=== PATIENT | male | born 1935 | race Caucasian/White ===

== ENCOUNTER 2018-03-22 14:44 | Emergency (ER) | payer MEDICARE, OTHER ==
--- OUTSIDE RECORDS SUMMARY | 2018-03-22 14:52 | XMS REPORT | Continuity of Care Document ---
:1935 External Reference #:[id number] Author Name Cee Steven O.D. Address [address] [place] [address] Care Team Providers Name Role Phone Bassam Gonzalez M.D. Primary Care Physician Unavailable Payers Type Date Identification Numbers Payment Provider Subscriber Policy Number: [id number] [employer] Bonifacio Maya PayID: [id number] [facility] [id number] [place] [address] Advance Directives Description No Information Available Problems Date Description Provider Status Onset: 10/29/2014 Benign prostatic hyperplasia Cee Steven O.D. Active Onset: 10/29/2014 Essential hypertension Cee Steven O.D. Active Onset: 10/29/2014 Abdominal aortic aneurysm Cee Steven O.D. Active Onset: 10/29/2014 Posttraumatic stress disorder Cee Steven O.D. Active Onset: 10/29/2014 Hypercholesterolemia Cee Steven O.D. Active Onset: 10/29/2014 Hypertensive retinopathy Cee Steven O.D. Active Onset: 10/29/2014 Nuclear senile cataract Cee Steven O.D. 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 Active degeneration Onset: 11/06/2014 Internal hordeolum Kassy Baxter O.D. Active Onset: 11/06/2014 Blepharitis Kassy Baxter O.D. Active Onset: 05/06/2015 Combined form of senile cataract Cee Steven O.D. 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 Active Onset: 12/06/2016 Chronic allergic conjunctivitis Mitchell Gunderson M.D. Active Onset: 11/06/2017 Tear film insufficiency Cee Steven O.D. Active Onset: Vertigo Active Onset: Sinusitis Active Onset: 03/09/2018 Vitreous degeneration Cee Steven O.D. 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 ETOH Use Denies alcohol use Tobacco Use Start: Unknown Patient has never smoked Recreational Drug Use Former Drug User Smoking Status Reviewed: 03/09/18 Patient has never smoked Allergies, Adverse Reactions, Alerts Date Description Reaction Status Severity Comments 10/29/2014 Felodipine Active 10/29/2014 Moxifloxacin Active 10/29/2014 Levaquin Active 10/29/2014 Contrast Dye Active 10/29/2014 Glucosamine Active 10/29/2014 Chondroitin Sulfate A Active 10/29/2014 Sulfa Antibiotics Active 10/29/2014 Clonidine Active 06/21/2017 Aliskiren Active 06/21/2017 Zoloft Active Medications Medication Date Status Form Strength Qnty SIG Indications Ordering Provider Preservision 05/05/ Active Capsules Arejose 2 1 cap by Cee Silveira 2 2017 mouth once ashley Steven O.D. Meclizine HCL / Active Tablets 25mg daily Unknown 0000 Beta Prostate / Active daily Unknown 0000 Biofreeze / Active Gel 4% daily Unknown Roll-On 0000 (back pain) Labetalol HCL / Active Tablets 100mg [place] 0000 tthew BeauDTera Fluocinolone / Active Oil 0.01% Unknown Acetonide 0000 Ventolin HFA / Active Aerosol 108(90Base inhale 2 Unknown 0000 ) mcg/Act puffs by mouth every 4 hours as Needed for shortness of breath Furosemide / Active Tablets 20mg take 1 Unknown 0000 tablet by mouth once daily if needed for Swelling Ranitidine HCL / Active Capsules 150mg take 1 Unknown 0000 capsule by mouth twice a day Amoxicillin/Cl / Active Tablets 875-125mg Unknown avulanate 0000 Potassium Epinastine HCL 12/28/ Hx Solution 0.05% 15ml 1 drop H10.45 Cee Gambino 2017 - twice a Stockwin, 05/07/ day in O.D. 2018 each eye Maxitrol 12/12/ Hx Ointment 3.5-87936- 3.500g apply 04/27' H10.45 Cee Gambino 2017 - 0.1 m to all Stockwin, 05/07/ lids every O.D. 2018 night at bedtime x 2 weeks Pazeo 12/06/ Hx Solution 0.7% 7.5ml 1 drop H10.45 Mitchell Gambino 2017 - both eyes Arleo, 12/27/ bid M.D. 2017 Artificial 12/05/ Hx Solution 1.4% 1 drop Mitchell J. Tears 2017 - both eyes Arleo, 12/05/ 1-2 times M.D. 2017 a day Artificial 12/05/ Hx Solution 1.4% 1 drop Mitchell J. Tears 2017 - both eyes Arleo, Preservative 1-2 times M.D. Free 2018 a day Doxazosin / Hx Tablets 1mg [place], Mesylate 0000 - Bassam 11/03/ M.D. 2016 Labetalol HCL / Hx Tablets 100mg [place], 0000 - Bassam 06/20/ M.D. 2018 Ventolin HFA / Hx Aerosol 108(90Base Skezas, 0000 - ) mcg/Act Bassam 05/07/ M.D. 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 Sertraline HCL 00/ Hx Tablets 25mg Unknown 0000 - 2017 Montelukast / Hx Tablets 10mg Unknown Sodium 0000 - 2017 Lisinopril / Hx Tablets 5mg Unknown 2017 Protonix / Hx Tablets DR 20mg Unknown 2017 Immunizations Description No Information Available Vital Signs Date Vital Result Comment 03/09/2018 9:54am BP Systolic 138 mmHg BP Diastolic 80 mmHg Heart Rate 49 /min Respiratory Rate 16 /min 06/21/2017 3:29pm BP Systolic 164 mmHg left arm BP Diastolic 104 mmHg left arm 11/04/2015 10:47am BP Systolic 142 mmHg Lwrist BP Diastolic 83 mmHg Lwrist Results Description No Information Available Procedures Date Code Description Status 11/06/2017 75029 Est Patient Comprehensive Exam Completed 06/21/2017 87470 Est Patient Comprehensive Exam Completed 05/08/2017 38074 Scanning Computerized Opthalmic Diagnostic Posterior Seg Completed Retina 05/08/2017 71644 Est Patient Comprehensive Exam Completed 12/06/2016 71746 Est Patient Intermediate Exam Completed 11/04/2016 83987 Scanning Computerized Opthalmic Diagnostic Posterior Seg Completed Retina 11/04/2016 19842 Determination Of Refractive State Completed 11/04/2016 04467 Est Patient Comprehensive Exam Completed 05/06/2016 22163 Scanning Computerized Opthalmic Diagnostic Posterior Seg Completed Retina 05/06/2016 24983 Est Patient Comprehensive Exam Completed 11/04/2015 22831 Est Patient Comprehensive Exam Completed 05/06/2015 06694 Est Patient Comprehensive Exam Completed 05/06/2015 15563 Determination Of Refractive State Completed 05/06/2015 67577 Scanning Computerized Opthalmic Diagnostic Posterior Seg Completed Retina 10/29/2014 07628 Determination Of Refractive State Completed 10/29/2014 33601 Est Patient Comprehensive Exam Completed 05/02/2014 29260 Est Patient Comprehensive Exam Completed 10/30/2013 91491 Determination Of Refractive State Completed 10/30/2013 98030 Est Patient Comprehensive Exam Completed 05/01/2013 29544 Determination Of Refractive State Completed 05/01/2013 39628 Est Patient Comprehensive Exam Completed 12/09/2011 67557 New Patient Comprehensive Exam Completed Encounters Type Date Location Provider Dx Diagnosis Office Visit 12/28/2016 Cee Marinelli H10.45 Other chronic 10:40a , pc Giovanna Steven allergic conjunctivitis H35.3132 Nexdtve age-related mclr degn, bilateral, intermed dry stage H35.033 Hypertensive retinopathy, bilateral Office Visit 12/12/2016 3:10p Mitchell Gambino H10.45 Other chronic MD Jalyn, erik Steven O.D. allergic conjunctivitis Office Visit 11/06/2014 1:45p Mitchell Baxter, 373.12 Meibomitis MD Jalyn, erik Heredia 373.00 Blepharitis Unspec 362.51 Nonexudative Senile Macular Degeneration / Dry Office Visit 10/29/2012 12:00p Mitchell Gambino 362.11 Hypertensive MD Jalyn, erik Steven O.D. Retinopathy Office Visit 04/20/2012 9:30a Mitchell Gambino 362.11 Hypertensive MD Jalyn, erik Steven O.D. Retinopathy Office Visit 01/20/2012 12:30p Mitchell Gambino 362.11 Hypertensive MD Jalyn, erik Steven O.D. Retinopathy Plan of Treatment 03/09/2018 - Cee Steven O.D.H35.033 Hypertensive retinopathy, bilateralFollow up:6 Month Follow Up OCT MAC You can expect to have your eyes dilated at your next visit. If Dr. Steven orders any additional testing, it may require extra time. We recommend that you bring sunglasses,as dilation drops often make you light sensitive until they wear off. We always recommend you bring someone to drive you home if you are uncomfortable driving with your eyes dilated. If you have any questions before your next visit, feel free to call our office at .H35.3132 Nonexudative age-related macular degeneration, bilateral, intermediate dry stageComments:Continue taking the Areds 2 vitaminsContinue to check Amsler grid 1-2 x weekly, each eye [id number] Combined forms of age-related cataract, bilateralComments:You have been diagnosed with cataracts. If you are happy with your vision as it is now, then we willsee you at your next scheduled appointment. If you feel like your vision is getting worse before your scheduled appointment, please call Patrizia Rogers at [phone].H43.21 Crystalline deposits in vitreous body, right eyeH04.123 Dry eye syndrome of bilateral lacrimal glandsComments: use artificial tears both eyes as sqbwfaQ99.813 Vitreous degeneration, bilateralComments:You have a Posterior Vitreous Detachment. Please read the pamphlet that was given to you. If you have any changes in your floaters or flashing lights, please contact this office.
--- OUTSIDE RECORDS SUMMARY | 2018-03-22 14:52 | XMS REPORT | Continuity of Care Document ---
:1935 External Reference #:[id number] Author Name Moise Aldrich Care Team Providers Name Role Phone Bassam Gonzalez M.D. Primary Care Physician Unavailable Payers Type Date Identification Numbers Payment Provider Subscriber Policy Number: [id number] [employer] Bonifacio Maya PayID: [id number] [id number] [place] [address] Advance Directives Description No Information Available Problems [...] Cee Steven O.D. Active Onset: Vertigo Active Family History Date Family Member(s) Problem(s) [...] Indications Ordering Provider Preservision 05/05/ Active Capsules Areds 2 1 cap by Cee Silveira 2 2017 mouth once [place], a day O.DTera Meclizine HCL / Active Tablets 25mg daily Unknown 0000 Beta Prostate / Active daily Unknown 0000 Biofreeze / Active Gel 4% daily Unknown Roll-On 0000 (back pain) Labetalol HCL / Active Tablets 100mg [place] 0000 tthew M.D. Fluocinolone / Active Oil 0.01% Unknown Acetonide [...] 0000 capsule by mouth twice a day Epinastine HCL 09/06/ Hx Solution 0.05% 15ml 1 drop H10.45 Cee Gambino 2017 - twice a [place]win, 05/07/ day in O.D. 2018 each eye Maxitrol 12/12/ Hx Ointment 3.5-20520- 3.500g apply 04/27' H10.45 Cee Gambino 2017 [...] Tears 2017 - both eyes Arleo, Preservative -2 times M.D. Free 2018 a day Doxazosin / Hx Tablets 1mg Skez[place], Mesylate 0000 - Bassam 11/03/ M.D. 2016 Labetalol HCL / Hx Tablets 100mg Skezas, 0000 - Bassam 06/20/ M.D. 2018 Ventolin HFA / Hx Aerosol 108(90Base Skezas, 0000 - ) mcg/Act Bassam 05/07/ M.D. 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 Sertraline HCL 00/ Hx Tablets 25mg Unknown - 2017 Montelukast /00/ Hx Tablets 10mg Unknown Sodium - 2017 Lisinopril 00/ Hx Tablets 5mg Unknown 2017 Protonix 00/ Hx Tablets DR 20mg Unknown 2017 Immunizations Description No Information Available Vital Signs Date Vital Result Comment 06/21/2017 3:29pm BP Systolic 164 mmHg left arm BP Diastolic 104 mmHg left arm 11/04/2015 10:47am BP Systolic 142 mmHg Lwrist BP Diastolic 83 mmHg Lwrist Results Description No Information Available Procedures Date Code Description Status 11/06/2017 52099 Est Patient Comprehensive Exam Completed 06/21/2017 33200 Est Patient Comprehensive Exam Completed 05/08/2017 58883 Scanning Computerized Opthalmic Diagnostic Posterior Seg Completed Retina 05/08/2017 67116 Est Patient Comprehensive Exam Completed 12/06/2016 26987 Est Patient Intermediate Exam Completed 11/04/2016 04428 Scanning Computerized Opthalmic Diagnostic Posterior Seg Completed Retina 11/04/2016 14689 Determination Of Refractive State Completed 11/04/2016 54459 Est Patient Comprehensive Exam Completed 05/06/2016 22960 Scanning Computerized Opthalmic Diagnostic Posterior Seg Completed Retina 05/06/2016 42757 Est Patient Comprehensive Exam Completed 11/04/2015 98318 Est Patient Comprehensive Exam Completed 05/06/2015 02588 Est Patient Comprehensive Exam Completed 05/06/2015 61861 Determination Of Refractive State Completed 05/06/2015 14410 Scanning Computerized Opthalmic Diagnostic Posterior Seg Completed Retina 10/29/2014 95277 Determination Of Refractive State Completed 10/29/2014 87789 Est Patient Comprehensive Exam Completed 05/02/2014 02280 Est Patient Comprehensive Exam Completed 10/30/2013 51229 Determination Of Refractive State Completed 10/30/2013 83448 Est Patient Comprehensive Exam Completed 05/01/2013 97753 Determination Of Refractive State Completed 05/01/2013 00778 Est Patient Comprehensive Exam Completed 12/09/2011 55958 New Patient Comprehensive Exam Completed Encounters Type Date Location Provider Dx Diagnosis Office Visit 12/28/2016 Cee Marinelli H10.45 Other chronic 10:40a , erik Steven O.D. allergic conjunctivitis H35.3132 Nexdtve age-related mclr degn, [...] erik Steven O.D. Retinopathy Plan of Treatment 11/06/2017 - Cee Steven O.D.H35.033 Hypertensive retinopathy, bilateralComments:Smoking can increase the risk of developing or worsening any eye related disease, as well as affect your overall health. If you are a smoker , we strongly recommend that you quit.If you are not a smoker, we strongly recommend that you do not start.Follow up:4 Month Follow Up / oct mac You can expect to have your eyes dilated at your next visit. If Dr. Steven orders any additional testing, it may require extra time. We recommend that you bring sunglasses, as dilation drops often make you light sensitive until they wear off. We always recommend you bring someone to drive you home if you are uncomfortable driving with your eyes dilated. If you have any questions before your next visit, feel free to call our office at .H31.6452 Nonexudative age-related macular degeneration, bilateral, intermediate dry stageComments:continue taking the areds 2 vitaminscheck your Amsler grid 2 x [id number] Combined forms of age-related cataract, bilateralComments:You have been diagnosed with cataracts. If you are happy with your vision as it is now, then we willsee you at your next scheduled appointment. If you feel like your vision is getting worse before your scheduled appointment, please call Patrizia or Sue at [phone].H43.21 Crystalline deposits in vitreous body, right eyeH04.123 Dry eye syndrome of bilateral lacrimal glandsComments: Use artificial tears 3-4 x day as needed both eyes
--- OUTSIDE RECORDS SUMMARY | 2018-03-22 14:52 | XMS REPORT | Continuity of Care Document ---
:1935 External Reference #:[id number] Author Name Opal Badillo Care Team Providers Name Role Phone Bassam Gonzalez MD Primary Care Physician Unavailable Payers Type Date Identification Numbers Payment Provider Subscriber Policy Number: [id number] [employer] Bonifacio Maya PayID: [id number] [address] [place] [address] Effective: 1998 Policy Number: [id number] Fred Eugeneett Bonifacio Maya Onset: 1998 PayID: [id number] [facility], [address]urg[address] [place] [address] Advance Directives Description No Information Available Problems Date Description Provider Status Onset: 07/31/2013 Essential hypertension Damian Padilla M.D., LEXX CAST[place] Active Onset: 07/31/2013 Difficulty breathing Damian Padilla M.D., LEXX [place] Active Onset: 07/31/2013 Heart murmur Damian Padilla M.D., LEXX [place] Active Onset: 08/28/2013 Chest pain Damian Padilla M.D., LEXX [place]ST[place] Active Onset: 07/07/2014 Thoracic Aortic Ectasia Damian Padilla M.D., LEXX CASTANEDA Active Onset: 07/13/2015 Thoracic aortic ectasia Ica ECHO Schedule Active Family History Date Family Member(s) Problem(s) Comments Father Diabetes Father bile duct cancer Mother Hypertension Mother Cancer Social History Type Date Description Comments Sex Unknown Marital Status Lives With Occupation Retired Tobacco Use Start: Unknown Never Smoked Cigarettes Smoking Status Reviewed: 03/14/18 Never Smoked Cigarettes ETOH Use Occasionally consumes alcohol Tobacco Use Start: Unknown Patient has never smoked Recreational Drug Use Denies Drug Use Exercise Type/Frequency Exercises regularly Allergies, Adverse Reactions, Alerts Date Description Reaction Status Severity Comments 07/30/2013 Benicar rash Active 07/30/2013 Diovan HCT Active 07/30/2013 Felodipine Active 07/30/2013 Flomax chest pain Active 07/30/2013 Glucosamine rash Active 07/30/2013 IV Dye (CT Dye) rash Active 07/30/2013 Levaquin Active 07/30/2013 Lipitor GI reaction Active 07/30/2013 Lipitor nausea Active 07/30/2013 Moxifloxacin swelling Active 07/31/2013 Amlodipine Active Severe itching, swelling lips, rash, diff breathing 07/31/2013 Aspirin Active sores on face 07/31/2013 Hydrochlorothiazide Active "hyperirritated, volume depleted" 07/31/2013 Clonidine Active itching, lip swelling, not feeling well 07/31/2013 Hydralazine Active Mild itching, not feeling well 07/31/2013 Metoprolol Active Severe itching, funning feeling on toungue, diff breathing, SOB 07/31/2013 Xyzal Active very tired 07/31/2013 Atenolol Active chest pain 07/31/2013 Nadolol Active Severe muscle spasms, diff breathing 08/25/2017 Terazosin Active 08/25/2017 Azelastine Active 08/25/2017 Doxyzosin Active 08/25/2017 Cefzil Active 08/25/2017 Tekturna Active 08/25/2017 Montelukast Active 08/25/2017 Zoloft Active 08/25/2017 Pazeo Active 08/25/2017 Methyldopa Active Medications Medication Date Status Form Strength Qnty SIG Indications Ordering Provider Preservision 00/ Active Capsules Areds 2 1 capsule Unknown Areds 2 0000 by mouth daily Beta Prostate 00/ Active 1 by Unknown 0000 mouth daily Meclizine HCL / Active Tablets 1 every Unknown 0000 6-8 hours as needed Labetalol HCL / Active Tablets 100mg 1 tablet Skezas, 0000 po tid MD Bassam Furosemide / Active Tablets 20mg take 1 Unknown 0000 tablet by mouth once daily Align Probiotic / Active 4mg take 1 Unknown 0000 tab by mouth daily Lorazepam 10/02/ Hx Tablets 2mg 2tabs take one M51.36 Cornelius 2017 - tablet 30 Ryder, 10/18/ minutes M.D. 2018 prior to mri, may repeat at time of mri. Robaxin-750 06/27/ Hx Tablets 750mg 50tabs 1-2 q8h Fox Yanez 2006 - [place], 07/31/ M.D. 2013 Ventolin HFA / Hx Aerosol 108(90Base 18unit 2 puffs Unknown 0000 - ) mcg/Act s by mouth four 2018 times a day as needed Metoprolol / Hx Tablets ER 25mg 30tabs 1 by Unknown Succinate ER 0000 - 24HR mouth 07/31/ every day 2013 Multivitamins / Hx Capsules 30caps 1 by Unknown 0000 - mouth 07/31/ every day 2013 Labetalol HCL / Hx Tablets 100mg 180tab 1 tab as Unknown 0000 - s directed 2017 Terazosin HCL 00/ Hx Capsules 5mg 90caps 1 by Unknown 0000 - mouth hs 2014 I-Bennie / Hx Tablets 1 by Unknown 0000 - mouth 04/24/ every day 2014 Buspirone HCL 00/ Hx Tablets 5mg 30tabs 1 by Unknown 0000 - mouth 04/24/ daily 2014 Vitamin D-3 / Hx Capsules 1000Unit 90caps 2 by Unknown 0000 - mouth 04/24/ every day 2014 Simvastatin 00/ Hx Tablets 5mg 90tabs 1 by Unknown 0000 - mouth 04/24/ every day 2014 Spironolactone / Hx Tablets 25mg 1/2 tab Unknown 0000 - by mouth 05/22/ bid 2016 Doxazosin 00/ Hx Tablets 1mg daily Lisa, Mesylate 0000 - MD Bassam 2017 Icaps // Hx Capsules 1 by Unknown 0000 - mouth daily 2018 Neomycin-Polymyx / Hx Solution 1% 2 drops Unknown in-HC 0000 - each ear 06/20/ prn 2018 Methyldopa / Hx Tablets 250mg 1 by Unknown 0000 - mouth /03/ every 6 2018 hours Medications Administered in Office Medication Date Status Form Strength Qnty SIG Indications Ordering Provider Inj, Administered Injection Ashley Regadenoson, 018 Thuman, PARCEL WRAPPER 0.1 MG Technetium TC Administered Injection Damian Harry 99M 018 Ever Padilla M.D., FACC, Per Unit Dose FASNC Up To 40 Millicuries Technetium TC Administered Injection Damian Harry 99M 018 Ever Padilla M.D., FACC, Per Unit Dose FASNC Up To 40 Millicuries Immunizations Description No Information Available Vital Signs Date Vital Result Comment 03/14/2018 1:22pm Height 71 inches 5'11" Heart Rate 78 /min BP Systolic Sitting 122 mmHg BP Diastolic Sitting 80 mmHg Body Temperature 96.7 F 03/05/2018 1:09pm Height 71 inches 5'11" Weight 209.00 lb Heart Rate 64 /min BP Systolic Sitting 158 mmHg Rue reg cuff BP Diastolic Sitting 100 mmHg Rue reg cuff BP Systolic Standing 146 mmHg Rue BP Diastolic Standing 92 mmHg Rue Respiratory Rate 16 /min BMI (Body Mass Index) 29.1 kg/m2 Ejection Fraction 60-65% 02/26/18 10/18/2017 2:37pm Height 71 inches 5'11" Weight 209.00 lb BP Systolic Sitting 128 mmHg BP Diastolic Sitting 90 mmHg Pain Level 4 BMI (Body Mass Index) 29.1 kg/m2 08/25/2017 10:16am Height 71 inches 5'11" Weight 209.00 lb without shoes Heart Rate 60 /min BP Systolic Sitting 144 mmHg Lue reg cuff BP Diastolic Sitting 94 mmHg Lue reg cuff BP Systolic Standing 150 mmHg Lue reg cuff BP Diastolic Standing 98 mmHg Lue reg cuff Respiratory Rate 17 /min BMI (Body Mass Index) 29.1 kg/m2 Ejection Fraction 65-70% 07/10/2017-echo 06/21/2017 9:43am Height 71 inches 5'11" Weight 202.00 lb BP Systolic Sitting 190 mmHg LA lg cuff BP Diastolic Sitting 122 mmHg LA lg cuff Respiratory Rate 18 /min Pain Level 0 BMI (Body Mass Index) 28.2 kg/m2 07/21/2015 12:38pm Height 71 inches 5'11" Weight 209.00 lb w/ shoes Heart Rate 56 /min reg BP Systolic Sitting 176 mmHg Lue, lg cuff BP Diastolic Sitting 76 mmHg Lue, lg cuff BP Systolic Standing 176 mmHg Lue BP Diastolic Standing 84 mmHg Lue Respiratory Rate 18 /min BMI (Body Mass Index) 29.1 kg/m2 Ejection Fraction 60-65% as of 07/13/15 echo 07/07/2014 9:08am Height 71 inches 5'11" Weight 208.00 lb w/o shoes Heart Rate 54 /min irreg BP Systolic Sitting 168 mmHg LA, reg cuff BP Diastolic Sitting 104 mmHg LA, reg cuff BP Systolic Standing 152 mmHg LA BP Diastolic Standing 80 mmHg LA Respiratory Rate 18 /min BMI (Body Mass Index) 29.0 kg/m2 05/07/2014 8:11am Height 71 inches 5'11" Weight 206.00 lb Heart Rate 60 /min BP Systolic Sitting 136 mmHg LA reg cuff BP Diastolic Sitting 78 mmHg LA reg cuff BP Systolic Standing 148 mmHg LA BP Diastolic Standing 88 mmHg LA Respiratory Rate 16 /min BMI (Body Mass Index) 28.7 kg/m2 08/28/2013 10:40am Height 71 inches 5'11" Weight 211.00 lb Heart Rate 60 /min BP Systolic Sitting 144 mmHg BP Diastolic Sitting 82 mmHg BP Systolic Standing 150 mmHg BP Diastolic Standing 84 mmHg BP Systolic Recheck 141 mmHg home unit BP Diastolic Recheck 80 mmHg home unit Respiratory Rate 16 /min BMI (Body Mass Index) 29.4 kg/m2 07/31/2013 12:15pm Height 71 inches 5'11" Weight 213.00 lb Heart Rate 76 /min BP Systolic 178 mmHg right arm BP Diastolic 100 mmHg right arm BP Systolic Sitting 180 mmHg left arm BP Diastolic Sitting 92 mmHg left arm BP Systolic Standing 182 mmHg left arm BP Diastolic Standing 90 mmHg left arm Respiratory Rate 16 /min BMI (Body Mass Index) 29.7 kg/m2 Results Test Date Facility Test Result H/L Range Note Laboratory test 08/02/2013 [facility] Free T4 0.69 ng/mL N 0.61-1.[address] [place] [address] [phone] T4 5.95 g/dL Low 6.09-12.23 TSH (Thyroid Stimulating Horm) 1.06 IU/mL N 0.34-5.60 T3 Uptake 27 % N 27 - 37 1 Lipid Profile 08/02/2013 [facility] Triglycerides 76 mg/dL N 2 (Trig/Chol/HDL) [address] [place] [address] [phone] Cholesterol 170 mg/dL N 3 HDL Cholesterol 44.1 mg/dL N 4 LDL Cholesterol 111 mg/dL N 5 Comp Metabolic Panel 08/02/2013 [facility] Sodium 139 mmol/L N 133-[address] [place] [address] [phone] Potassium 4.1 mmol/L N 3.7-5.6 Chloride 105 mmol/L N 101-111 Co2 Carbon Dioxide 29 mmol/L N 22-32 Anion Gap 5 mmol/L N 2-11 Glucose 100 mg/dL N 70-100 Blood Urea Nitrogen 17 mg/dL N 6-24 Creatinine 0.72 mg/dL N 0.67-1.17 BUN/Creatinine Ratio 23.6 High 8-20 Calcium 9.0 mg/dL N 8.6-10.3 Total Protein 6.6 g/dL N 6.4-8.9 Albumin 4.2 g/dL N 3.2-5.2 Globulin 2.4 g/dL N 2-4 Albumin/Globulin Ratio 1.8 N 1-3 Total Bilirubin 0.90 mg/dL N 0.2-1.0 Alkaline Phosphatase 68 U/L N 34-104 Alt 23 U/L N 7-52 Ast 21 U/L N 13-39 Egfr Non- 106.1 N >60 Egfr 136.5 N >60 6 CBC Auto Diff 08/02/2013 [facility] White Blood 7.6 10^3/uL N 4.8-10.[address] [place] [address] [phone] Red Blood Count 4.82 10^6/uL N 4.0-5.4 Hemoglobin 14.5 g/dL N 14.0-18.0 Hematocrit 43 % N 42-52 Mean Corpuscular Volume 89 fL N 80-94 Mean Corpuscular Hemoglobin 30 pg N 27-31 Mean Corpuscular HGB Conc 34 g/dL N 31-36 Red Cell Distribution Width 14 % N 10.5-15 Platelet Count 163 10^3/uL N 150-450 Mean Platelet Volume 9 um3 N 7.4-10.4 Abs Neutrophils 4.5 10^3/uL N 1.5-7.7 Abs Lymphocytes 1.8 10^3/uL N 1.0-4.8 Abs Monocytes 0.9 10^3/uL High 0-0.8 Abs Eosinophils 0.3 10^3/uL N 0-0.6 Abs Basophils 0 10^3/uL N 0-0.2 Abs Nucleated RBC 0.01 10^3/uL N Granulocyte % 59.7 % N 38-83 Lymphocyte % 24.2 % Low 25-47 Monocyte % 12.1 % High 1-9 Eosinophil % 3.5 % N 0-6 Basophil % 0.5 % N 0-2 Nucleated Red Blood Cells % 0.1 N 1 Test Performed by: [address] [address] [employer] Educational [employer]ide: Will Mckeon III, M.D. 2 Desirable <150 Borderline high 150-199 High 200-499 Very High >500 3 Desirable <200 Borderline high 200-239 High >239 4 Low <40 Desirable: 40-60 High: >60 5 Desirable <100 Near Optimal 100-129 Borderline high 130-159 High 160-189 Very High >189 6 Because ethnic data is not always readily available, this report includes an eGFR for both -Americans and non- Americans. The National Kidney Disease Education Program (NKDEP) does not endorse the use of the MDRD equation for patients that are not between the ages of 18 and 70, are , have extremes of body size, muscle mass, or nutritional status, or are non- or non-. According to the National Kidney Foundation, irrespective of diagnosis, the stage of the disease is based on the level of kidney function: Stage Description GFR(mL/min/1.73 m(2)) 1 Kidney damage with normal or decreased GFR 90 2 Kidney damage with mild decrease in GFR 60-89 3 Moderate decrease in GFR 30-59 4 Severe decrease in GFR 15-29 5 Kidney failure <15 (or dialysis) Procedures Date Code Description Status 03/05/2018 78441 EKG Tracing & Interpretation Completed 02/26/2018 53601 ECHO Transthoracic, Real-Time 2D With Doppler And Color Completed Flow 02/26/2018 72866 ECHO Transthoracic, Real-Time 2D With Doppler And Color Completed Flow 2018 91234 Stress Test Completed 2018 53889 Myocardial Perfusion Imaging Tomographic (Spect) Multiple Completed Studies 02/02/2018 35734 Destruction Of Benign Lesions Any Method 1-14 lesions Completed 02/02/2018 23560 Dest Lesion Each Addl Lesion 2 Through 14 Each Completed 02/02/2018 65586 Destruction ALL Benign Or Premalignant Lesion (Other Than Completed [place] 02/02/2018 92549 Biopsy Skin Lesion Single Completed 08/25/2017 30167 EKG Tracing & Interpretation Completed 07/10/2017 86542 ECHO Transthoracic, Real-Time 2D With Doppler And Color Completed Flow 07/10/2017 15020 ECHO Transthoracic, Real-Time 2D With Doppler And Color Completed Flow 06/21/2017 42249 Aspiration &/Or Inj Of Ganglion Cyst(S) Any Location Completed 07/21/2015 11015 EKG Tracing & Interpretation Completed 07/13/2015 70468 ECHO Transthoracic, Real-Time 2D With Doppler And Color Completed Flow 07/07/2014 04516 EKG Tracing & Interpretation Completed 07/04/2014 05550 ECHO Transthoracic, Real-Time 2D With Doppler And Color Completed Flow 08/26/2013 89564 ECHO Stress Test Incl Perf Contiuous ekg Monitoring W/Phys Completed Superv 08/09/2013 59207 ECHO Transthoracic, Real-Time 2D With Doppler And Color Completed Flow 07/31/2013 69194 EKG Tracing & Interpretation Completed Encounters Type Date Location Provider Dx Diagnosis Office Visit 03/05/2018 [facility] Damian Mcdonald I77.810 Thoracic aortic 1:30p [facility] Pola Padilla, ectasia [facility] Office Visit 02/02/2018 [facility] Dermatology Jazmín Armendariz, L82.1 Other seborrheic 9:00a keratosis D18.01 Hemangioma of skin and subcutaneous tissue L82.0 Inflamed seborrheic keratosis L98.9 Disorder of the skin and subcutaneous tissue, unspecified L57.0 Actinic keratosis Office Visit 10/18/2017 2:30p Sp[facility] Nav[facility] Aline Quevedo 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] M67.442 Ganglion, left hand Office Visit 07/21/2015 1:00p [facility] Damian Harry I77.810 Thoracic aortic [facility] Pola Padilla, ectasia FAC, FASNC Office Visit 07/07/2014 9:15a [facility] Damian Mcdonald 447.71 Thoracic Aortic [facility] Pola Padilla, Ectasia FACTim, FASNC 401.9 Hypertension Unspec Office Visit 05/07/2014 8:15a [facility] Damian Mcdonald 401.9 Hypertension [facility] Pola Padilla, Unspec FACC, FASNC Office Visit 08/28/2013 10:30a [facility] Damian Mcdonald 786.50 Pain Chest Unspec Pola Padilla, FACC, FASNC Office Visit 07/31/2013 12:00p [facility] Damian Harry 401.9 Hypertension Pola Padilla, Unspec FAC, FASNC 786.09 Dyspnea & Respiratory Abnormalities Other 785.2 Murmur Cardiac Undiagnosed Office Visit 06/27/2006 1:00p [facility] Fox Wagner, 724.2 Lumbago [facility] 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 Charles to discuss surgery
--- OUTSIDE RECORDS SUMMARY | 2018-03-22 14:52 | XMS REPORT ---
:1935 External Reference #:[id number] Author Organization [facility] Address [address] [place] [address] [place] [address] Phone [phone] Care Team Providers Name Role Phone Bassam Gonzalez MD Primary Care Physician Unavailable Payers Type Date Identification Numbers Payment Provider Subscriber Commercial Policy Number: [id number] [employer]et[employer] Medicare Bonifacio Maya PayID: [id number] [facility] [address] [place] [address] Workers Compensation Effective: Policy Number: Fred Maya 1998 [id number] Onset: 1998 PayID: [id number] [facility], [address]urg[address] [place] [address] Problems Date Description Provider Status Onset: 07/31/2013 Essential hypertension Damian Padilla M.D., ALDOLEXX Active Onset: 07/31/2013 Difficulty breathing [facility] Active Onset: 07/31/2013 Heart murmur [facility] Active Onset: 08/28/2013 Chest pain Damian Padilla M.D., LEXX CASTANEDA Active Onset: 07/07/2014 Thoracic Aortic Ectasia [facility] M.D., [facility] Active Onset: 07/13/2015 Thoracic aortic ectasia Ica ECHO Schedule Active Family History Date Family Member(s) Problem(s) Comments Father Diabetes Father bile duct cancer Mother Hypertension Mother Cancer Social History Type Date Description Comments Marital Status Lives With Occupation Retired Cigarette Use Never Smoked Cigarettes ETOH Use Occasionally consumes alcohol Smoking Patient has never smoked Recreational Drug Use Denies Drug Use Daily Caffeine Consumes on average 3 cups of regular coffee per day Daily Caffeine consumes chocolate occasionally Exercise Type/Frequency Exercises regularly Allergies, Adverse Reactions, Alerts Date Description Reaction Status Severity Comments 07/30/2013 Benicar rash active 07/30/2013 Diovan HCT active 07/30/2013 Felodipine active 07/30/2013 Flomax chest pain active 07/30/2013 Glucosamine rash active 07/30/2013 IV Dye (CT Dye) rash active 07/30/2013 Levaquin active 07/30/2013 Lipitor GI reaction active 07/30/2013 Lipitor nausea active 07/30/2013 Moxifloxacin swelling active 07/31/2013 Amlodipine active Moderate to itching, swelling Severe lips, rash, diff breathing 07/31/2013 Aspirin active sores on face 07/31/2013 Hydrochlorothiazide active "hyperirritated, volume depleted" 07/31/2013 Clonidine active itching, lip swelling, not feeling well 07/31/2013 Hydralazine active Mild itching, not feeling well 07/31/2013 Metoprolol active Moderate to itching, funning Severe feeling on toungue, diff breathing, SOB 07/31/2013 Xyzal active very tired 07/31/2013 Atenolol active chest pain 07/31/2013 Nadolol active Moderate to muscle spasms, Severe diff breathing 08/25/2017 Terazosin active 08/25/2017 Azelastine active 08/25/2017 Doxyzosin active 08/25/2017 Cefzil active 08/25/2017 Tekturna active 08/25/2017 Montelukast active 08/25/2017 Zoloft active 08/25/2017 Pazeo active 08/25/2017 Methyldopa active Medications Medication Date Status Form Strength Qnty SIG Indications Ordering Provider Preservision / Active Capsules Areds 2 1 capsule Unknown Areds 2 0000 by mouth daily Beta Prostate / Active 1 by Unknown 0000 mouth daily [...] one M51.36 Cornelius 2017 - tablet 30 Pierz, 10/18/ minutes M.D. 2017 prior to mri, may repeat at time of mri. Robaxin-750 06/27/ Hx Tablets 750mg 50tabs 1-2 q8h Fox Yanez 2006 - Zupruk, 07/31/ M.DTera 2013 Ventolin HFA / Hx Aerosol 108(90Base 18unit 2 puffs Unknown 0000 - ) mcg/Act s by mouth 06/20/ four 2018 times a day as needed Metoprolol / Hx Tablets ER 25mg 30tabs 1 by Unknown Succinate ER 0000 - 24HR mouth 07/31/ every day 2013 Multivitamins / Hx Capsules 30caps 1 by Unknown 0000 - mouth 07/31/ day 2013 Labetalol HCL / Hx Tablets 100mg 180tab 1 tab as Unknown 0000 - s directed 2017 Terazosin HCL 00/ Hx Capsules 5mg 90caps 1 by Unknown 0000 - mouth hs 2014 I-Bennie 00/ Hx Tablets 1 by Unknown 0000 - mouth 04/24/ every day 2014 Buspirone HCL 00/ Hx Tablets 5mg 30tabs 1 by Unknown 0000 - mouth 04/24/ daily 2015 Vitamin D-3 / Hx Capsules 1000Unit 90caps 2 by Unknown 0000 - mouth 04/24/ every day 2014 Simvastatin 00/ Hx Tablets 5mg 90tabs 1 by Unknown 0000 - mouth 04/24/ every day 2014 Spironolactone / Hx Tablets 25mg 1/2 tab Unknown 0000 - by mouth 05/22/ bid 2016 Doxazosin 00/ Hx Tablets 1mg daily Lisa Mesnasir 0000 - MD Bassam 2017 Icaps / Hx Capsules 1 by Unknown 0000 - mouth daily 2018 Neomycin-Polymyx / Hx Solution 1% 2 drops Unknown in-HC 0000 - each ear 06/20/ prn 2018 Methyldopa / Hx Tablets 250mg 1 by Unknown 0000 - mouth 08/24/ every 6 2018 hours Medications Administered in Office Medication Date Status Form Strength Qnty SIG Indications Ordering Provider Inj, Administered Injection Ashley Regadenoson, 018 Thuman, EMPLOYEE ADVISER 0.1 MG Technetium TC Administered Injection Damian Mcdonald 99M 018 Ever Padilla M.D., LEONEL, Per Unit Dose FASNC Up To 40 Millicuries Technetium TC Administered Injection Damian Harry 99M 018 Ever Padilla M.D., FACC, Per Unit Dose FASNC Up To 40 Millicuries Vital Signs Date Vital Result Comment 03/05/2018 Height 71 inches 5'11" Weight 209.00 lb Heart Rate 64 /min BP Systolic Sitting 158 mmHg Rue reg cuff BP Diastolic Sitting 100 mmHg Rue reg cuff BP Systolic Standing 146 mmHg Rue BP Diastolic Standing 92 mmHg Rue Respiratory Rate 16 /min BMI (Body Mass Index) 29.1 kg/m2 Ejection Fraction 60-65% 02/26/18 10/18/2017 Height 71 inches 5'11" Weight 209.00 lb BP Systolic Sitting 128 mmHg BP Diastolic Sitting 90 mmHg Pain Level 4 BMI (Body Mass Index) 29.1 kg/m2 08/25/2017 Height 71 inches 5'11" Weight 209.00 lb without shoes Heart Rate 60 /min BP Systolic Sitting 144 mmHg Lue reg cuff BP Diastolic Sitting 94 mmHg Lue reg cuff BP Systolic Standing 150 mmHg Lue reg cuff BP Diastolic Standing 98 mmHg Lue reg cuff Respiratory Rate 17 /min BMI (Body Mass Index) 29.1 kg/m2 Ejection Fraction 65-70% 07/10/2017-echo 06/21/2017 Height 71 inches 5'11" Weight 202.00 lb BP Systolic Sitting 190 mmHg LA lg cuff BP Diastolic Sitting 122 mmHg LA lg cuff Respiratory Rate 18 /min Pain Level 0 BMI (Body Mass Index) 28.2 kg/m2 07/21/2015 Height 71 inches 5'11" Weight 209.00 lb w/ shoes Heart Rate 56 /min reg BP Systolic Sitting 176 mmHg Lue, lg cuff BP Diastolic Sitting 76 mmHg Lue, lg cuff BP Systolic Standing 176 mmHg Lue BP Diastolic Standing 84 mmHg Lue Respiratory Rate 18 /min BMI (Body Mass Index) 29.1 kg/m2 Ejection Fraction 60-65% as of 07/13/15 echo 07/07/2014 Height 71 inches 5'11" Weight 208.00 lb w/o shoes Heart Rate 54 /min irreg BP Systolic Sitting 168 mmHg LA, reg cuff BP Diastolic Sitting 104 mmHg LA, reg cuff BP Systolic Standing 152 mmHg LA BP Diastolic Standing 80 mmHg LA Respiratory Rate 18 /min BMI (Body Mass Index) 29.0 kg/m2 05/07/2014 Height 71 inches 5'11" Weight 206.00 lb Heart Rate 60 /min BP Systolic Sitting 136 mmHg LA reg cuff BP Diastolic Sitting 78 mmHg LA reg cuff BP Systolic Standing 148 mmHg LA BP Diastolic Standing 88 mmHg LA Respiratory Rate 16 /min BMI (Body Mass Index) 28.7 kg/m2 08/28/2013 Height 71 inches 5'11" Weight 211.00 lb Heart Rate 60 /min BP Systolic Sitting 144 mmHg BP Diastolic Sitting 82 mmHg BP Systolic Standing 150 mmHg BP Diastolic Standing 84 mmHg BP Systolic Recheck 141 mmHg home unit BP Diastolic Recheck 80 mmHg home unit Respiratory Rate 16 /min BMI (Body Mass Index) 29.4 kg/m2 07/31/2013 Height 71 inches 5'11" Weight 213.00 lb [...] Mass Index) 29.7 kg/m2 Results Test Date Test Result H/L Range Note Laboratory test finding 08/02/2013 Free T4 0.69 ng/mL 0.61-1.12 T4 5.95 g/dL Low 6.09-12.23 TSH (Thyroid Stimulating Horm) 1.06 IU/mL 0.34-5.60 T3 Uptake 27 % 27 - 37 1 Lipid Profile (Trig/Chol/HDL) 08/02/2013 Triglycerides 76 mg/dL 2 Cholesterol 170 mg/dL 3 HDL Cholesterol 44.1 mg/dL 4 LDL Cholesterol 111 mg/dL 5 Comp Metabolic Panel 08/02/2013 Sodium 139 mmol/L 133-145 Potassium 4.1 mmol/L 3.7-5.6 Chloride 105 mmol/L 101-111 Co2 Carbon Dioxide 29 mmol/L 22-32 Anion Gap 5 mmol/L 2-11 Glucose 100 mg/dL 70-100 Blood Urea Nitrogen 17 mg/dL 6-24 Creatinine 0.72 mg/dL 0.67-1.17 BUN/Creatinine Ratio 23.6 High 8-20 Calcium 9.0 mg/dL 8.6-10.3 Total Protein 6.6 g/dL 6.4-8.9 Albumin 4.2 g/dL 3.2-5.2 Globulin 2.4 g/dL 2-4 Albumin/Globulin Ratio 1.8 1-3 Total Bilirubin 0.90 mg/dL 0.2-1.0 Alkaline Phosphatase 68 U/L 34-104 Alt 23 U/L 7-52 Ast 21 U/L 13-39 Egfr Non- 106.1 >60 Egfr 136.5 >60 6 CBC Auto Diff 08/02/2013 White Blood Count 7.6 10^3/uL 4.8-10.8 Red Blood Count 4.82 10^6/uL 4.0-5.4 Hemoglobin 14.5 g/dL 14.0-18.0 Hematocrit 43 % 42-52 Mean Corpuscular Volume 89 fL 80-94 Mean Corpuscular Hemoglobin 30 pg 27-31 Mean Corpuscular HGB Conc 34 g/dL 31-36 Red Cell Distribution Width 14 % 10.5-15 Platelet Count 163 10^3/uL 150-450 Mean Platelet Volume 9 um3 7.4-10.4 Abs Neutrophils 4.5 10^3/uL 1.5-7.7 Abs Lymphocytes 1.8 10^3/uL 1.0-4.8 Abs Monocytes 0.9 10^3/uL High 0-0.8 Abs Eosinophils 0.3 10^3/uL 0-0.6 Abs Basophils 0 10^3/uL 0-0.2 Abs Nucleated RBC 0.01 10^3/uL Granulocyte % 59.7 % 38-83 Lymphocyte % 24.2 % Low 25-47 Monocyte % 12.1 % High 1-9 Eosinophil % 3.5 % 0-6 Basophil % 0.5 % 0-2 Nucleated Red Blood Cells % 0.1 1 Test Performed by: [facility] [address] [address] Resident Care Spec: Will Mckeon III, M.D. 2 Desirable <150 [...] Kidney failure <15 (or dialysis) Procedures Date CPT Code Description Status 03/05/2018 28538 EKG Tracing & Interpretation Completed 02/26/2018 51263 ECHO Transthoracic, Real-Time 2D With Doppler And Color Completed Flow 2018 25033 Stress Test Completed 2018 75993 Myocardial Perfusion Imaging Tomographic (Spect) Completed Multiple Studies 02/02/2018 74112 Destruction Of Benign Lesions Any Method 1-14 lesions Completed 02/02/2018 03106 Dest Lesion Each Addl Lesion 2 Through 14 Each Completed 02/02/2018 13300 Destruction ALL Benign Or Premalignant Lesion (Other Completed Than [place] 02/02/2018 86862 Biopsy Skin Lesion Single Completed 08/25/2017 06106 EKG Tracing & Interpretation Completed 07/10/2017 89212 ECHO Transthoracic, Real-Time 2D With Doppler And Color Completed Flow 07/10/2017 76936 ECHO Transthoracic, Real-Time 2D With Doppler And Color Completed Flow 06/21/2017 38194 Aspiration &/Or Inj Of Ganglion Cyst(S) Any Location Completed 07/21/2015 89039 EKG Tracing & Interpretation Completed 07/13/2015 00387 ECHO Transthoracic, Real-Time 2D With Doppler And Color Completed Flow 07/07/2014 59112 EKG Tracing & Interpretation Completed 07/04/2014 60179 ECHO Transthoracic, Real-Time 2D With Doppler And Color Completed Flow 08/26/2013 67793 ECHO Stress Test Incl Perf Contiuous ekg Monitoring Completed W/Phys Superv 08/09/2013 49910 ECHO Transthoracic, Real-Time 2D With Doppler And Color Completed Flow 07/31/2013 28671 EKG Tracing & Interpretation Completed Encounters Type Date Location Provider CPT E/M Dx Office Visit 02/02/2018 9:00a [facility] [place]azmín [place] [address] L82.1 D18.01 L82.0 L98.9 L57.0 Office Visit 10/18/2017 2:30p [facility] Aline Quevedo PA-C 21124 M51.36 M54.2 Office Visit 10/02/2017 2:30p [facility] Aline Quevedo PA-C 68457 M51.36 Office Visit 08/25/2017 10:45a [facility] Damian Padilla, 13114 I77.810 Avinash Escalona, LEONEL, [facility] Office Visit 06/21/2017 9:00a [facility] [place] [address] M72.0 C.M.A. M67.442 Office Visit 07/21/2015 1:00p [facility] Damian Padilla, 42663 I77.810 Avinash Escalona, ALDO, [facility] Office Visit 07/07/2014 9:15a [facility] Damian Padilla, 39548 447.71 Avinash Escalona, LEONEL, [facility] 401.9 Office Visit 05/07/2014 8:15a [facility] Damian Padilla, 71881 401.9 Avinash [facility]alona, LEONEL, [facility] Visit 08/28/2013 10:30a [facility] Damian Padilla, 61232 786.50 M.Ilia, FACTim, [facility] Office Visit 07/31/2013 12:00p [facility] Damian Padilla, [address]07[address] 401.9 M.Ilia, LEONEL, [facility] 786.09 785.2 Office Visit 06/27/2006 1:00p [facility], 85863 724.2 Avinash Escalona 607.84 Plan of Care 03/05/2018 - Damian Padilla M.D., LEONEL, LQDRKP85.810 Thoracic aortic ectasiaNew Orders:EchocardiogramComments:As discussed, your heart seems stable including no significant heart artery blockages and stable aorta. Please continue to avoid lifting weights greater than 30 lbs.Follow up:3 years after echo
--- OUTSIDE RECORDS SUMMARY | 2018-03-22 14:52 | XMS REPORT | Continuity of Care Document ---
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 Bassam Gonzalez MD Primary Care Physician Unavailable Payers Type Date Identification Numbers Payment Provider Subscriber Expires: 2016 Policy Number: [id number] Medicare Bonifacio Maya PayID: [id number] [address] [place] [address] Policy Number: [id number] [employer] Bonifacio Maya [address] [address] [place] [address] Advance Directives Description No Information Available Problems Description No Information Family History Date Family Member(s) Problem(s) Comments General Cancer, Head And Neck Social History Type Date Description Comments Sex Unknown Marital Status Smoke-Free Home is smoke-free Occupation Retired Tobacco Use Start: Unknown End: Used To Smoke Cigarettes But Unknown Quit. ETOH Use Rarely consumes alcohol Recreational Drug Use Denies Drug Use Allergies, Adverse Reactions, Alerts Date Description Reaction Status Severity Comments 06/16/2016 Benicar swelling and itchy skin Active 06/16/2016 Terazosin labored breathing Active 06/16/2016 Buspar Active 06/16/2016 Nadolol increased bp and muscle spasm Active 06/16/2016 Atenolol chest pain Active 06/16/2016 Xyzal increased fatigue Active 06/16/2016 Metoprolol Active 06/16/2016 Hydrochlorothiazide Active 06/16/2016 Clonidine Active 06/16/2016 Hydralazine Active 06/16/2016 Felodipine Active Medications Medication Date Status Form Strength Qnty SIG Indications Ordering Provider Montelukast 10/20/ Active Tablets 10mg 30tabs 1 by mouth Sharon Mcdonald every day Pola Vann Meclizine HCL 09/12/ Active Tablets 25mg 30tabs 1 by mouth Harry2016 three Edwar, times a M.D. day Xanax 06/23/ Active Tablets 0.5mg 3tabs one tab 30 Harry2016 minutes Edwar, before the M.D. procedure, Doxazosin / Active Tablets 1mg 1 PO QHS Unknown 0000 Areds2 / Active Tabs 1 by mouth Unknown 0000 daily Labetalol HCL / Active Tablets 100mg 1 tab by Unknown 0000 mouth four times daily Beta Prostate / Active 1 po qd Unknown 0000 Prednisone 01/20/ Hx Tablets 10mg 10tabs 2 by mouth Harry2015 - for the Edwar, 06/15/ first 3 M.D. 2017 days and 1 by mouth every morning for the next 4 days Dermotic 09/01/ Hx Oil 0.01% 2units apply 5 Harry, 2011 - gtts bid Edwar, 09/08/ to M.D. 2015 affected ear canal(s)fo r 7-14 days Nasonex 07/12/ Hx Suspension 50mcg/Act 17GMbo 2 sprays Harry, 2010 - ttl each Edwar, 09/08/ nostril M.D. 2016 daily Dermotic 12/14/ Hx Oil 0.01% 1units 5 gtts in Harry2009 - both ears Edwar, 07/12/ bid x 1-2 M.D. 2010 wks, then as needed Benicar / Hx Tablets 10mg Unknown 0000 - 2015 Aspirin / Hx Chewtabs 81mg Unknown 0000 - 2015 Mvi / Hx Unknown 0000 - 2015 Doxycycline / Hx Capsules 100mg 20caps take one Unknown Hyclate 0000 - twice a day 2015 Neomycin/Poly / Hx Suspension 3.5-72919- Unknown myxin/Dexamet 0000 - 0.1 hasone 2016 Ventolin HFA / Hx Aerosol 108(90Base 2 puffs by Unknown 0000 - ) mcg/Act mouth 06/15/ every 4 2017 hours as needed Immunizations Description No Information Available Vital Signs Date Vital Result Comment 03/02/2018 1:23pm Weight 212.00 lb Height 70.5 inches 5'10.50" BMI (Body Mass Index) 30.0 kg/m2 BP Systolic 189 mmHg pt states he will take his bp med now BP Diastolic 113 mmHg pt states he will take his bp med now Heart Rate 52 /min O2 % BldC Oximetry 97 % Body Temperature 97.7 F Pain Level 0 10/20/2016 3:28pm Weight 208.00 lb Height 70.5 inches 5'10.50" BMI (Body Mass Index) 29.4 kg/m2 Heart Rate 86 /min O2 % BldC Oximetry 93 % Body Temperature 97.5 F 09/12/2016 4:42pm Weight 208.00 lb Height 70.5 inches 5'10.50" BMI (Body Mass Index) 29.4 kg/m2 BP Systolic 146 mmHg BP Diastolic 86 mmHg Heart Rate 82 /min O2 % BldC Oximetry 99 % Body Temperature 98.6 F 06/16/2016 1:37pm Weight 208.00 lb Height 70.5 inches 5'10.50" BMI (Body Mass Index) 29.4 kg/m2 BP Systolic 144 mmHg BP Diastolic 86 mmHg Heart Rate 59 /min O2 % BldC Oximetry 95 % Body Temperature 97.7 F 01/21/2016 9:54am Weight 197.00 lb Height 70.5 inches 5'10.50" BMI (Body Mass Index) 27.9 kg/m2 BP Systolic 152 mmHg BP Diastolic 92 mmHg Heart Rate 51 /min O2 % BldC Oximetry 97 % Body Temperature 98.2 F 09/09/2015 2:51pm Weight 208.00 lb Height 70.5 inches 5'10.50" BMI (Body Mass Index) 29.4 kg/m2 BP Systolic 144 mmHg BP Diastolic 86 mmHg Heart Rate 55 /min O2 % BldC Oximetry 97 % Body Temperature 97.8 F 07/12/2010 10:38am Weight 205.00 lb Height 71 inches 5'11" BMI (Body Mass Index) 28.6 kg/m2 BP Systolic 136 mmHg BP Diastolic 88 mmHg Heart Rate 68 /min O2 % BldC Oximetry 98 % Body Temperature 96.9 F 12/14/2009 2:13pm Weight 205.00 lb Height 71 inches 5'11" BMI (Body Mass Index) 28.6 kg/m2 BP Systolic 130 mmHg BP Diastolic 80 mmHg Heart Rate 55 /min O2 % BldC Oximetry 97 % Body Temperature 98.1 F Results Description No Information Available Procedures Date Code Description Status 10/20/2016 35720 Tympanometry Completed 06/16/2016 17781 Derrick Maneuver Completed 06/16/2016 68335 Tympanometry Completed 01/21/2016 16930 Tympanometry Completed 01/21/2016 86267 Tympanometry Completed 01/21/2016 60951 Pure Tone Audiometry, Air & Bone Completed 01/21/2016 13424 Pure Tone Audiometry, Air & Bone Completed 09/16/2015 44795 Tympanometry Completed 09/16/2015 03656 Audiometry, Comprehensive Completed 04/13/2010 82999 Assessment of Tinnitus Completed 04/13/2010 30314 Audiometry, Comprehensive Completed 04/13/2010 73221 Tympanometry And Reflex Thres Completed 12/30/2009 39877 Audiometry, Comprehensive Completed 12/30/2009 02596 Tympanometry And Reflex Thres Completed Encounters Type Date Location Provider Dx Diagnosis Office Visit 10/20/2016 Main Office Edwar Mcdonald M.D. R42 Dizziness and 3:15p giddiness H69.92 Unspecified Eustachian tube disorder, left ear Office Visit 09/12/2016 4:15p Main Office Edwar Mcdonald M.D. R42 Dizziness and giddiness H90.3 Sensorineural hearing loss, bilateral Office Visit 06/16/2016 1:30p Main Office Edwar Mcdonald, H69.83 Other specified M.D. disorders of Eustachian tube, bilateral H81.12 Benign paroxysmal vertigo, left ear Office Visit 01/21/2016 9:30a Main Office Edwar Mcdonald H90.3 Sensorineural hearing M.D. 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 Sensorineural Unspec 780.4 Dizziness & Giddiness 388.30 Tinnitus Unspecified Office Visit 12/30/2009 10:30a Main Office Marta Lockett PA 696.1 Psoriasis Other 389.10 Hearing Loss Sensorineural Unspec Office Visit 12/14/2009 2:00p Main Office Marta Lockett PA 696.1 Psoriasis Other 389.9 Hearing Loss Unspec Plan of Treatment No Information Available
[2018-03-22 15:03] VITALS: BP 176/96
--- NOTE | 2018-03-22 15:35 | UC ---
Allergic Reaction HPI - HPI Summary HPI Summary: 83-year-old male comes in with chief complaint of 2 days of itching all over primarily on the hands and swollen hands and some hives on his inner thighs. Is not sure what is having a reaction to. He was on Augmentin which he finished 7 days ago. He was on the Augmentin for ear infection he's been having some sinusitis symptoms .he seeing Dr. Mcdonald ENT for this. He takes Benadryl and that improves the itching and the swelling. No difficulty swallowing or breathing. - History of Current Complaint Chief Complaint: UCAllergicReaction Stated Complaint: EAR ACHE, AND CONGESTION Time Seen by Provider: 03/22/18 15:29 Pain Intensity: 3 - Allergies/Home Medications Allergies/Adverse Reactions: Allergies Allergy/AdvReac Type Severity Reaction Status Date / Time MS Amlodipine [Amlodipine] Allergy Unknown Verified 10/12/17 10:36 Reaction Details MS Amoxicillin Allergy GI Upset Verified 10/12/17 10:36 [From Augmentin] MS Ascorbate Allergy Unknown Verified 10/12/17 10:36 [From Glucosamine 2000] Reaction Details MS Atorvastatin Allergy GI Upset Verified 10/12/17 10:36 [From Lipitor] MS Buspirone [From Buspar] Allergy Unknown Verified 10/12/17 10:36 Reaction Details MS Clavulanic Acid Allergy GI Upset Verified 10/12/17 10:36 [From Augmentin] MS Felodipine [Felodipine] Allergy Unknown Verified 10/12/17 10:36 Reaction Details MS Glucosamine [Glucosamine] Allergy Unknown Verified 10/12/17 10:36 Reaction Details MS Harpagophytum Procumbens Allergy Unknown Verified 10/12/17 10:36 [From Glucosamine 2000] Reaction Details MS Hydrochlorothiazide Allergy Rash Verified 10/12/17 10:36 [From Diovan HCT] MS Levofloxacin Allergy Unknown Verified 10/12/17 10:36 [From Levaquin] Reaction Details MS Magnesium Chloride Allergy Unknown Verified 10/12/17 10:36 [From Glucosamine 1999] Reaction Details MS Moxifloxacin Allergy Swelling Verified 10/12/17 10:36 MS Olmesartan [From Benicar] Allergy Unknown Verified 10/12/17 10:36 Reaction Details MS Tamsulosin [From Flomax] Allergy Pain Verified 10/12/17 10:36 MS Uncaria Tomentosa (Cats Allergy Unknown Verified 10/12/17 10:36 Claw) Reaction [From Glucosamine 1999] Details MS Valsartan Allergy Rash Verified 10/12/17 10:36 [From Fercho HCT] ct dye Allergy Rash Uncoded 10/12/17 10:36 Home Medications: Home Medications Vit C/E/Zn/Coppr/Lutein/Zeaxan [Preservision Areds 2 Softgel] 1 each PO DAILY [History Confirmed 03/22/18] PMH/Surg Hx/FS Hx/Imm Hx Cardiovascular History: Congestive Heart Failure Respiratory History: Asthma - Surgical History Surgical History: Yes Surgery Procedure, Year, and Place: crushed rt side chest from [facility] 1961. APPENDIX AGE 14. TONSILS AGE 25 - Family History Known Family History: Positive: Hypertension Family History: Bile Duct CA - Social History Alcohol Use: Rare Alcohol Amount: 2 drinks/month Substance Use Type: None Smoking Status (MU): Never Smoked Tobacco - Immunization History Most Recent Influenza Vaccination: utd Most Recent Tetanus Shot: 02/17/07 Most Recent Pneumonia Vaccination: 06/23/03 Review of Systems All Other Systems Reviewed And Are Negative: Yes Constitutional: Positive: Negative Skin: Positive: Other - SEE HPI Eyes: Positive: Negative ENT: Positive: Ear Ache, Nasal Discharge, Sinus Congestion Respiratory: Positive: Negative Cardiovascular: Positive: Negative Gastrointestinal: Positive: Negative Genitourinary: Positive: Negative Motor: Positive: Negative Neurovascular: Positive: Negative Musculoskeletal: Positive: Negative Neurological: Positive: Negative Psychological: Positive: Negative Is Patient Immunocompromised?: No Physical Exam Triage Information Reviewed: Yes Appearance: Well-Appearing, No Pain Distress, Well-Nourished Vital Signs: Initial Vital Signs Temp 98.6 F 03/22/18 14:59 Pulse 54 03/22/18 14:59 Resp 16 03/22/18 14:59 BP 176/96 03/22/18 14:59 Pulse Ox 98 03/22/18 14:59 Vital Signs Reviewed: Yes Eye Exam: Normal Eyes: Positive: Conjunctiva Clear ENT: Positive: Normal ENT inspection, Pharynx normal, TMs normal Neck exam: Normal Neck: Positive: Supple Respiratory Exam: Normal Respiratory: Positive: Chest non-tender, Lungs clear, Normal breath sounds Cardiovascular Exam: Normal Cardiovascular: Positive: RRR Musculoskeletal Exam: Normal Musculoskeletal: Positive: Strength Intact, ROM Intact Neurological Exam: Normal Neurological: Positive: Alert, Muscle Tone Normal Psychological Exam: Normal Psychological: Positive: Normal Response To Family, Age Appropriate Behavior Skin: Positive: Other - I do not see any rash on the hand at this time. On his inner upper thighs he does have a faint hint of a raised erythematous rash. Allergic Reaction Course/Dx - Course Course Of Treatment: Plan is to treat with a Medrol Dosepak. I would have A refill on that. Patient has appointment with his primary care doctor on April 03, 2018. Patient knows if he gets worse he gets rechecked right away. - Differential Dx/Diagnosis Provider Diagnosis: Allergic reaction Discharge - Sign-Out/Discharge Documenting (check all that apply): Patient Departure All imaging exams completed and their final reports reviewed: No Studies - Discharge Plan Condition: Stable Disposition: HOME Prescriptions: methylPREDNISolone [Medrol Dosepak 4 MG*] 0 mg PO .SEE TUNDE INSTRUCTION #1 tunde Patient Education Materials: General Allergic Reaction (ED) Referrals: Bassam Gonzalez MD [Primary Care Provider] - Additional Instructions: FOLLOW UP WITH YOUR DOCTOR IF NOT COMPLETELY IMPROVED. GET RECHECKED FOR ANY WORSENING OF YOUR CONDITION OR QUESTIONS OR CONCERNS. - Billing Disposition and Condition Condition: STABLE Disposition: Home
== END 2018-03-22 15:51 | disposition home or self-care (01) ==
LOC: UCEAST 14:44
DX: L29.9 Pruritus, unspecified (principal); T78.40XA Allergy, unspecified, initial encounter; X58.XXXA Exposure to other specified factors, initial encounter; Z88.8 Allergy status to other drugs, medicaments and biological substances; Z88.1 Allergy status to other antibiotic agents; Z91.041 Radiographic dye allergy status
CPT/HCPCS: 99212; G0463